=== PATIENT | female | born 1970 | race African-American/Black ===

== ENCOUNTER 2016-10-12 01:53 | Emergency (ER) | payer OTHER ==
[2016-10-12 04:02] VITALS: BP 140/64
== END 2016-10-12 04:02 | disposition home or self-care (01) ==
LOC: ED 01:53
DX: S62.603A Fracture of unspecified phalanx of left middle finger, initial encounter for closed fracture (principal); S62.605A Fracture of unspecified phalanx of left ring finger, initial encounter for closed fracture; X58.XXXA Exposure to other specified factors, initial encounter; Y93.89 Activity, other specified; Y99.8 Other external cause status; Y92.89 Other specified places as the place of occurrence of the external cause
CPT/HCPCS: 90715